=== PATIENT | male | born 1970 ===

== ENCOUNTER 2020-11-15 11:14 | Emergency (ER) | payer SELFPAY ==
[~2020-11-15] VITALS: Ht 167.6 cm; Wt 63.6 kg
[2020-11-15 13:54] VITALS: BP 117/64
== END 2020-11-15 18:33 | disposition home or self-care (01) ==
LOC: EMS 11:14
DX: R45.6 Violent behavior (principal); Z59.0 Homelessness
CPT/HCPCS: Z7502